=== PATIENT | male | born 1985 | race Caucasian/White ===

== ENCOUNTER 2022-11-09 20:08 | Emergency (ER) | payer BC ==
[~2022-11-09] VITALS: Ht 175.3 cm; Wt 95.0 kg
[2022-11-09 20:24] VITALS: BP 132/74
[2022-11-09] MEDS ORDERED: ondansetron 4mg rapidly disintigrating tab PO STA (20:28)
[2022-11-09 20:48] LABS: BASOPHILS % (AUTO) 0.4 % (0-1); EOSINOPHILS # (AUTO) 0.1 X10'3 (0-0.9); EOSINOPHILS % (AUTO) 0.6 % (0-6); HEMATOCRIT 42.7 % (42.0-52.0); HEMOGLOBIN 14.8 g/dl (14.0-17.9); LYMPHOCYTES # (AUTO) 0.9 X10'3 (1.1-4.8); LYMPHOCYTES % (AUTO) 8.5 % (21-51); MEAN CORPUSCULAR HEMOGLOBIN 29.5 PG (27.0-31.0); MEAN CORPUSCULAR HGB CONC 34.6 g/dL (33.0-36.5); MEAN CORPUSCULAR VOLUME 85.1 FL (78-98); MEAN PLATELET VOLUME 8.1 FL (7.4-10.4); MONOCYTES # (AUTO) 0.8 X10'3 (0-0.9); MONOCYTES % (AUTO) 7.1 % (2-12); NEUTROPHILS # (AUTO) 9.2 X10'3 (1.8-7.7); NEUTROPHILS % (AUTO) 83.4 % (42-75); PLATELET COUNT 226 X10'3 (140-440); RED BLOOD COUNT 5.02 X10'6 (4.70-6.10); RED CELL DISTRIBUTION WIDTH 13.3 % (11.5-14.5); WHITE BLOOD COUNT 11.1 X10'3 (4.5-11.0)
[2022-11-09] MEDS ORDERED: NO HOME MEDS (21:00)
[2022-11-09] MEDS ORDERED: normal saline 1000ml 1,000 ML IV SCH (21:05)
[2022-11-09] MEDS ORDERED: metoclopramide 5 mg/ml inj IV STA (21:07)
--- NOTE | 2022-11-09 21:08 | NUR ---
GAVE PT WARMED BLANKETS, STATES HE IS STILL NAUSEATED AND THAT [employer] NEVER WORKS FOR HIM, ORDERD ADAMARIS AFTER TALKING TO DR. HERNANDEZ.
[2022-11-09 21:09] LABS: ALANINE AMINOTRANSFERASE 48 U/L (12-78); ALBUMIN 3.6 G/DL (3.4-5.0); ALBUMIN/GLOBULIN RATIO 0.9 (1.1-1.5); ALKALINE PHOSPHATASE 67 IU/L (46-116); ANION GAP 10 (8-16); ASPARTATE AMINO TRANSFERASE 29 U/L (10-37); BILIRUBIN,TOTAL 0.7 MG/DL (0.1-1.0); BLOOD UREA NITROGEN 19 MG/DL (7-18); BUN/CREATININE RATIO 16.5 (10.0-20.0); CALCIUM 9.2 MG/DL (8.5-10.1); CHLORIDE 103 MMOL/L (99-107); CREATININE 1.15 MG/DL (0.60-1.10); GLUCOSE 137 MG/DL (70-104); LIPASE 92 U/L (73-393); POTASSIUM 3.6 MMOL/L (3.5-5.1); SODIUM 138 MMOL/L (135-145); TOTAL CARBON DIOXIDE 25.4 MMOL/L (24-32); TOTAL PROTEIN 7.4 G/DL (6.4-8.2); eGFR 72 ML/MIN
[2022-11-09] MEDS ORDERED: normal saline 1000ML IV soln IVB ONE (21:15)
[2022-11-09] MEDS ORDERED: morphine 2 MG/ML inj. syringe IV PRN (21:15)
[2022-11-09] MEDS ORDERED: acetaminophen 325mg tablet PO ONE (21:25)
[2022-11-09 21:42] LABS: C-REACTIVE PROTEIN 13.89 MG/DL (0.0-0.5); CREATINE KINASE 226 U/L (39-308); MAGNESIUM 1.6 MG/DL (1.5-2.4)
[2022-11-09] MEDS ORDERED: normal saline 1000ml 1,000 ML IV ONE (21:46)
[2022-11-09] MEDS ORDERED: ibuprofen tablet 400 MG TABLET PO STA (22:26)
[2022-11-09] MEDS ORDERED: ketorolac trometh. 30mg/ml inj. IV ONE (22:35)
[2022-11-09 22:39] LABS: CLARITY,URINE SLIGHTLY CLOUDY (Clear); COLOR,URINE YELLOW (Yellow); GLUCOSE, URINE NEGATIVE (Neg); KETONES,URINE TRACE mg/dl (Neg); LEUKOCYTE ESTERASE ,URINE NEGATIVE (Neg); NITRITES, URINE NEGATIVE (Neg); OCCULT BLOOD,URINE TRACE-INTACT (Neg); PH,URINE 6.5 (4.8-8.0); PROTEIN,URINE 30 mg/dl (Neg)
[2022-11-09 22:44] LABS: UA COLLECTION TYPE CLN CATCH MIDSTREAM
[2022-11-09 22:46] LABS: SQUAMOUS EPITHELIAL CELL,UR MANY /LPF (FEW); WBC,URINE 0-4 /HPF (0-4)
[2022-11-09 22:47] LABS: BACTERIA,URINE FEW /HPF (Neg); TRANSITIONAL EPI CELLS,URINE FEW /HPF
[2022-11-09] MEDS ORDERED: magnesium 2GM in 50ml NS 50 ML IV ONE (23:00)
[2022-11-10] MEDS ORDERED: ONDA4TAB12 PO (00:16)
[2022-11-10] MEDS ORDERED: ROBDML PO (00:16)
--- NOTE | 2022-11-10 00:37 | NUR ---
IV DC'D PT BEING DISCHARGED DRESSING APPLIED
== END 2022-11-10 00:39 | disposition home or self-care (01) ==
LOC: ER 20:08
DX: B34.9 Viral infection, unspecified (principal); Z20.822 Contact with and (suspected) exposure to COVID-19; R50.9 Fever, unspecified; Z88.8 Allergy status to other drugs, medicaments and biological substances; Z79.899 Other long term (current) drug therapy
CPT/HCPCS: 36415; 80053; 81001; 82550; 83605; 83690; 83735; 83874; 84145; 84484; 85025; 86140; 87040; 87502; 87503; 87811; 96361; 96365; 96375; 99284; J1885; J2765; J3475; J7030